=== PATIENT | male | born 1980 | race Caucasian/White ===

== ENCOUNTER 2019-07-26 12:02 | Emergency (ER) | payer OTHER ==
[~2019-07-26] VITALS: Ht 182.9 cm; Wt 72.6 kg
== END 2019-07-26 14:55 | disposition home or self-care (01) ==
LOC: ER 12:02
DX: R50.9 Fever, unspecified (principal)

== ENCOUNTER 2019-08-31 09:01 | Outpatient (CLI) | payer OTHER | END 2019-08-31 09:10 | disposition home or self-care (01) | LOC: LAB 09:01 | DX: E04.8 Other specified nontoxic goiter (principal); E05.90 Thyrotoxicosis, unspecified without thyrotoxic crisis or storm; E55.9 Vitamin D deficiency, unspecified ==

== ENCOUNTER 2021-05-10 10:26 | Emergency (ER) | payer OTHER ==
[~2021-05-10] VITALS: Ht 182.9 cm; Wt 71.2 kg
== END 2021-05-10 15:37 | disposition home or self-care (01) ==
LOC: ER 10:26
DX: K52.9 Noninfective gastroenteritis and colitis, unspecified (principal); Z03.818 Encounter for observation for suspected exposure to other biological agents ruled out

== ENCOUNTER 2021-08-23 07:21 | Outpatient (CLI) | payer OTHER | END 2021-08-23 07:22 | disposition home or self-care (01) | LOC: LAB 07:21 | PROVIDERS: ATTEND Internal Medicine Gastroenterology | DX: R10.13 Epigastric pain (principal) ==

== ENCOUNTER → 2023-04-03 10:30 | Outpatient (CLI) | payer OTHER | END | disposition home or self-care (01) | LOC: LAB 10:30 | PROVIDERS: ATTEND Radiology Diagnostic Radiology | DX: R10.9 Unspecified abdominal pain (principal) ==

== ENCOUNTER 2023-04-06 10:53 | Outpatient (CLI) | payer OTHER | END 2023-04-06 14:21 | disposition home or self-care (01) | LOC: LAB 10:53 | PROVIDERS: ATTEND Internal Medicine | DX: R10.84 Generalized abdominal pain (principal); B96.81 Helicobacter pylori [H. pylori] as the cause of diseases classified elsewhere ==